=== PATIENT | male | born 1945 | race Caucasian/White ===

== ENCOUNTER 2022-05-31 17:07 | Emergency (ER) | payer MEDICARE, BC ==
[~2022-05-31] VITALS: Ht 175.3 cm; Wt 74.8 kg
[2022-05-31] MEDS ORDERED: MORPHINE SULFATE 2 MG/1 ML DISP.SYRIN IV ONE (17:30)
[2022-05-31] MEDS ORDERED: IV NORMAL SALINE 1000 ML BAG IV ONE (17:30)
[2022-05-31] MEDS ORDERED: ONDANSETRON 4 MG/2 ML VIAL IV ONE (17:30)
[2022-05-31 17:40] LABS: HEMATOCRIT 43.1 % (36.7-47.1); MEAN CORPUSCULAR HEMOGLOBIN 28.5 uug (23.8-33.4); MEAN CORPUSCULAR VOLUME 86.6 fL (73.0-96.2); PLATELET COUNT (AUTO) 159 K/uL (152-348)
[2022-05-31] MEDS ORDERED: ONDANSETRON 4 MG/2 ML VIAL ONE (17:45)
[2022-05-31] MEDS ORDERED: MORPHINE SULFATE 4 MG/1 ML DISP.SYRIN ONE (17:46)
[2022-05-31 17:55] LABS: BILIRUBIN,DIRECT 0.5 mg/dL (0.0-0.2); BILIRUBIN,TOTAL 1.3 mg/dL (0.2-1.0); CREATININE 1.3 mg/dL (0.6-1.3); POTASSIUM 4.4 mmol/L (3.5-5.1); TOTAL PROTEIN, SERUM 7.4 g/dL (6.4-8.2)
--- NOTE | 2022-05-31 18:50 | NUR ---
Urine specimen sent to lab. Patient was able to ambulate to restroom without difficulty.
[2022-05-31 19:00] LABS: *BILIRUBIN,URIN NEGATIVE (NEGATIVE); *BLOOD, URINE 1+ (NEGATIVE); *CLARITY,URINE CLEAR (CLEAR); *COLOR,URINE YELLOW (YELLOW); *KETONES,URINE NEGATIVE (NEGATIVE); *UROBILINOGEN,URINE 0.2 E.U./dl (NORMAL); LEUKOCYTE ESTERASE ,URINE NEGATIVE (NEGATIVE); NITRITE, URINE NEGATIVE (NEGATIVE); PH,URINE 5.5 (5.0-8.0); UGLUCOSE NEGATIVE (NEGATIVE)
--- NOTE | 2022-05-31 19:00 | NUR ---
Received report from NOE Madrigal.
--- NOTE | 2022-05-31 19:30 | NUR ---
Contacted Dr. Lee's office for a doctor to doctor call per Dr. Bautista's request.
[2022-05-31 19:34] LABS: WBC,URINE 0-3 /HPF (0-3)
[2022-05-31] MEDS ORDERED: HYDR-3972 PO (20:09)
--- NOTE | 2022-05-31 20:20 | NUR ---
Patient discharged to home in stable condition with . A/O x 4. NAD noted. Ambulatory with a steady gait. All belongings with patient. Written and verbal after care instructions given. Patient verbalizes understanding of instructions. Stressed follow up or return to ER for worsening s/s.
[2022-05-31 20:25] VITALS: BP 120/95
== END 2022-05-31 20:21 | disposition home or self-care (01) ==
LOC: ER 17:12
DX: R10.817 Generalized abdominal tenderness (principal); R19.7 Diarrhea, unspecified; R74.8 Abnormal levels of other serum enzymes; R74.01 Elevation of levels of liver transaminase levels; Z87.19 Personal history of other diseases of the digestive system
CPT/HCPCS: 99285; 74176; 96374; 96361; 96375; 80076; 80048; 81001; 83690; 85025; 36415; 93005; J2405; J2270; J7040